=== PATIENT | female | born 2000 | race Caucasian/White ===

== ENCOUNTER 2023-02-09 13:22 | Emergency (ER) | payer MEDICAID, SELFPAY ==
[2023-02-09 13:31] VITALS: BP 141/98; PULSE 117; RESP 18; TEMP 36.4; O2SAT 100; BMI 20.5
--- NOTE | 2023-02-09 13:33 | ED_ITS ---
HPI - General Adult General Chief complaint: Skin/Abscess/Foreign Body <FREDRICK Gerard Last Filed: 02/10/23 11:25> Stated complaint: throat infection <FREDRICK Gerard Last Filed: 02/10/23 11:25> Time Seen by Provider: 02/09/23 14:41 <FREDRICK Gerard Last Filed: 02/10/23 11:25> Source: patient <FREDRICK Horner Last Filed: 02/11/23 06:50> Mode of arrival: ambulatory <FREDRICK Horner Last Filed: 02/11/23 06:50> Limitations: no limitations <FREDRICK Horner Last Filed: 02/11/23 06:50> History of Present Illness HPI narrative: Patient is a 22 year old assigned female at with no reported medical history, daily tobacco smoker, presenting to the emergency department today with a sore throat. Patient states that she has had a sore throat over the last 2 days and was seen by the nurse at [facility] who recommended she come to the emergency department. Patient denies any dizziness, lightheadedness, abdominal pain, nausea, vomiting, fever, chills, blurry vision, double vision, loss of vision, chest pain, difficulty breathing, shortness of breath, back pain, night sweats, pain with urination, increased urinary frequency, increased urinary urgency, blood in her urine or stool, syncope or a near syncopal episode, recent trauma or falls, bowel incontinence, bladder incontinence, bowel retention, bladder retention, or any other complaints at this time. <FREDRICK Horner Last Filed: 02/11/23 06:50> Onset (ago): day(s) (2) <FREDRICK Horner Last Filed: 02/11/23 06:50> Severity: mild <FREDRICK Horner Last Filed: 02/11/23 06:50> Severity scale (1-10): 2 <FREDRICK Horner Last Filed: 02/11/23 06:50> Relieving factors: none <FREDRICK Horner Last Filed: 02/11/23 06:50> Exacerbating factors: none <FREDRICK Horner Last Filed: 02/11/23 06:50> Associated symptoms: denies other symptoms <FREDRICK Horner Last Filed: 02/11/23 06:50> Treatments prior to arrival: none <FREDRICK Horner Last Filed: 02/11/23 06:50> Related Data Home medications: Previous Rx's Medication Instructions Recorded penicillin V potassium 500 mg 500 mg PO BID 10 days #20 tabs 02/09/23 tablet prednisone 20 mg tablet 20 mg PO DAILY 7 days #7 tabs 02/09/23 <FREDRICK Gerard Last Filed: 02/10/23 11:25> Allergies/adverse reactions: Allergies Allergy/AdvReac Type Severity Reaction Status Date / Time No Known Allergies Allergy Verified 02/09/23 13:31 <FREDRICK Gerard Last Filed: 02/10/23 11:25> Review of Systems Constitutional: Constitutional: Reports no additional constitutional complaints, Denies chills, Denies fever(s) and Denies night sweats <FREDRICK Horner Last Filed: 02/11/23 06:50> Eyes: Eyes: Reports no additional eye complaints, Denies blurry vision, Denies change in vision, Denies diplopia, Denies eye discharge, Denies loss of vision and Denies eye pain <FREDRICK Horner Last Filed: 02/11/23 06:50> ENT: Denies dizziness and Reports sore throat <FREDRICK Horner Last Filed: 02/11/23 06:50> Cardiovascular: Cardiovascular: Reports no additional cardiovascular complaints, Denies chest pain, Denies lightheadedness, Denies Loss of Consciousness and Denies dyspnea <FREDRICK Horner Last Filed: 02/11/23 06:50> Respiratory: Respiratory: Reports no additional respiratory complaints and Denies dyspnea <FREDRICK Horner Last Filed: 02/11/23 06:50> Gastrointestinal: Gastrointestinal: Reports no additional gastrointestinal complaints, Denies abdominal pain, Denies melena, Denies hematochezia, Denies change in bowel habits and Denies change in stool character <FREDRICK Horner Last Filed: 02/11/23 06:50> Genitourinary: Genitourinary: Denies hematuria, Denies urinary frequency, Denies dysuria, Denies urinary incontinence, Denies urinary hesitancy and Denies urinary urgency <FREDRICK Horner - Last Filed: 02/11/23 06:50> Musculoskeletal: Musculoskeletal: Reports no additional musculoskeletal complaints, Denies numbness and Denies tingling <FREDRICK Horner - Last Filed: 02/11/23 06:50> Neurologic: Denies dizziness, Denies loss of vision, Denies numbness and Denies tingling <FREDRICK Horner - Last Filed: 02/11/23 06:50> Psychiatric: Psychiatric: Reports no additional psychiatric complaints <FREDRICK Horner - Last Filed: 02/11/23 06:50> Endocrine: Endocrine: Reports no additional endocrine complaints <FREDRICK Horner - Last Filed: 02/11/23 06:50> Hematologic/Lymphatic: Hematologic/Lymphatic: Reports no additional hematologic/lymphatic complaints <FREDRICK Horner - Last Filed: 02/11/23 06:50> Allergic/Immunologic: Allergic/Immunologic: Reports no additional allergic/immunologic complaints <FREDRICK Horner - Last Filed: 02/11/23 06:50> [facility] Past Medical History Attestation statement: The following information was validated with the patient. <FREDRICK Horner - Last Filed: 02/11/23 06:50> Source: old records reviewed and nursing notes reviewed <FREDRICK Horner - Last Filed: 02/11/23 06:50> Social History Social History: Social History Advance Directives: No <FREDRICK Gerard - Last Filed: 02/10/23 11:25> Physical Exam ED Vital Signs: Vital Signs - 24 hr 02/09/23 13:31 02/09/23 16:06 Temperature 97.5 F Pulse Rate 117 H 101 H Respiratory Rate 18 Blood Pressure 141/98 H Pulse Oximetry 100 Oxygen Delivery Method Room Air BMI result Body Mass Index 20.5 <FREDRICK Gerard - Last Filed: 02/10/23 11:25> Vital Signs - 24 hr 02/09/23 13:31 02/09/23 16:06 Temperature 97.5 F Pulse Rate 117 H 101 H Respiratory Rate 18 Blood Pressure 141/98 H Pulse Oximetry 100 Oxygen Delivery Method Room Air BMI result Body Mass Index 20.5 <FREDRICK Horner Last Filed: 02/11/23 06:50> Const General: cooperative, no acute distress, alert and awake <FREDRICK Horner - Last Filed: 02/11/23 06:50> Nutritional Appearance: well nourished <FREDRICK Horner - Last Filed: 02/11/23 06:50> Orientation/consciousness: patient oriented x3 <FREDRICK Horner - Last Filed: 02/11/23 06:50> Limitations: no limitations <FREDRICK Horner - Last Filed: 02/11/23 06:50> HENMT Head: Yes normal to inspection and Yes atraumatic <FREDRICK Horner - Last Filed: 02/11/23 06:50> Ears: hearing grossly normal bilaterally and external ears normal <FREDRICK Horner - Last Filed: 02/11/23 06:50> General nose exam: Normal external nose present, no nasal discharge noted and no epistaxis <FREDRICK Horner - Last Filed: 02/11/23 06:50> Face and sinus: Yes normal facial exam, No abrasion and No laceration <FREDRICK Horner - Last Filed: 02/11/23 06:50> Mouth: Normal oral and palatal mucosa present, no drooling and no muffled voice <FREDRICK Horner - Last Filed: 02/11/23 06:50> Throat: Yes abnormal tonsil (bilateral erythema and exudates) <FREDRIKC Horner - Last Filed: 02/11/23 06:50> Eyes General: appearance normal, both eyes and all related structures <FREDRICK Horner - Last Filed: 02/11/23 06:50> Periorbital: periorbital findings normal <FREDRICK Horner - Last Filed: 02/11/23 06:50> Eyelids: Yes eyelids normal <FREDRICK Horner - Last Filed: 02/11/23 06:50> Conjunctivae: conjunctivae normal <FREDRICK Horner - Last Filed: 02/11/23 06:50> Pupils: Equal, round and reactive pupils present <Lavern Adams PA - Last Filed: 02/11/23 06:50> EOM: EOMs intact bilaterally <Lavern Adams PA - Last Filed: 02/11/23 06:50> Neck Neck: Yes normal visual inspection, Yes full ROM and Yes no lymphadenopathy <Lavern Adams MD - Last Filed: 02/11/23 06:50> Chest Chest palpation & inspection: normal inspection of the chest <Lavern Adams MD - Last Filed: 02/11/23 06:50> Resp Effort & Inspection: normal respiratory effort and able to speak in complete sentences <Lavern Adams MD - Last Filed: 02/11/23 06:50> Auscultation: clear to auscultation bilaterally <Lavern Adams MD - Last Filed: 02/11/23 06:50> Cardio Rate: regular rate <Lavern Adams MD - Last Filed: 02/11/23 06:50> Rhythm: regular rhythm <Lavern Adams MD - Last Filed: 02/11/23 06:50> GI Inspection: Yes normal to inspection <Lavern Adams PA - Last Filed: 02/11/23 06 :50> Neuro General: patient oriented x3 and moves all extremities <Lavern Adams PA - Last Filed: 02/11/23 06:50> Cranial nerves: Yes Equal, round and reactive pupils present <Lavern Adams MD - Last Filed: 02/11/23 06:50> Cognition (Neuro): normal cognition <Lavern Adams PA - Last Filed: 02/11/23 06:50> Motor exam (neuro): 5/5 motor strength present throughout <Lavern Adams PA - Last Filed: 02/11/23 06:50> Sensory Exam: Normal double simultaneous stimulation for sensation <Lavern Adams PA - Last Filed: 02/11/23 06:50> Coordination: [id number] test normal <Lavern Adams PA - Last Filed: 02/11/23 06:50> Extrem General: Yes normal to inspection, Yes full ROM and Yes capillary refill normal <Lavern Haysteven PA - Last Filed: 02/11/23 06:50> Psych Appearance: grossly normal <FREDRICK Horner - Last Filed: 02/11/23 06:50> Mental Status: mental status grossly normal <FREDRICK Horner Last Filed: 02/11/23 06:50> Affect: normal affect <FREDRICK Horner Last Filed: 02/11/23 06:50> Attitude: cooperative <FREDRICK Horner - Last Filed: 02/11/23 06:50> Thought process: Normal thought process present <FREDRICK Horner - Last Filed: 02/11/23 06:50> Thought content: Normal thought content present <FREDRICK Horner Last Filed: 02/11/23 06:50> Insight: Good insight present (Psych) <FREDRICK Horner - Last Filed: 02/11/23 06:50> Course Course Course Narrative: This is an RME: Additional HPI, ROS, PE not included below will be deferred to primary provider. 22 year old female with recent throat infection presents with severe throat pain that started tuesday. Negative strep test perfo rmed at school. Patient is very anxious and reports throat is severely painful. Bilateral tonsils enlarged, L>R with exudates that are white/brown/black. Cervical adenopathy. Plan: throat swab <FREDRICK Gerard - Last Filed: 02/10/23 11:25> Medications Administered Discontinued Medications Generic Name Dose Route Start Last Admin Trade Name Freq PRN Reason Stop Dose Admin Dexamethasone Sodium Phosphate 10 mg 02/09/23 14:54 02/09/23 15:06 Dexamethasone Sod Phosphate 10 Mg/Ml Vial IVPUSH 02/09/23 14:55 10 mg ONCE ONE Administration <FREDRICK Gerard - Last Filed: 02/10/23 11:25> Medications Administered Discontinued Medications Generic Name Dose Route Start Last Admin Trade Name Freq PRN Reason Stop Dose Admin Dexamethasone Sodium Phosphate 10 mg 02/09/23 14:54 02/09/23 15:06 Dexamethasone Sod Phosphate 10 Mg/Ml Vial IVPUSH 02/09/23 14:55 10 mg ONCE ONE Administration <FREDRICK Horner Last Filed: 02/11/23 06:50> Medical Decision Making Medical Decision Making MDM Narrative: Patient is a 22 year old assigned female at with no reported medical history presenting to the emergency department today with a sore throat. Patient's physical exam showed bilateral tonsilar erythema and exudates but was otherwise unremarkable. Patient had a patent airway and no vocal hoarseness. Patient's COVID/Influenza/Strep tests were negative. I explained my physical exam findings as well as all test results to the patient. I answered all questions asked by the patient. Patient received PO Decadron which she stated helped her symptoms significantly. I stressed the importance of the patient taking her medication as prescribed. I stressed the importance of the patient following up with her primary care provider. I stressed the importance of the patient returning to the emergency department immediately if her symptoms were to worsen or if she were to develop any dizziness, shortness of breath, difficulty breathing, chest pain, blurry vision, loss of vision, nausea, vomiting, abdominal pain, fever, chills, back pain, or any other complaints. Patient verbalized agreement and understanding with this treatment plan and discharge. <FREDRICK Horner - Last Filed: 02/11/23 06:50> Differential Diagnosis Differential Diagnoses: The differential diagnosis associated with the presentation includes <FREDRICK Horner - Last Filed: 02/11/23 06:50> pharyngitis <FREDRICK Horner - Last Filed: 02/11/23 06:50> Lab Data [facility] Lab Attestation statement: I reviewed the patient's lab results. <FREDRICK Horner - Last Filed: 02/11/23 06:50> Labs: Lab Results 02/09/23 02/09/23 02/09/23 Range/Units 15:04 15:04 15:05 COVID-19 ([facility]) Negative (Negative) COVID-19 Clin Com See Note Influenza Type A ([facility]) Negative (Negative) Influenza Type B ([facility]) Negative (Negative) Influenza A & B Note See Note S. pyogenes GrpA [facility] Negative (Negative) <FREDRICK Gerard - Last Filed: 02/10/23 11:25> Lab Results 02/09/23 02/09/23 02/09/23 Range/Units 15:04 15:04 15:05 COVID-19 ([facility]) Negative (Negative) COVID-19 Clin Com See Note Influenza Type A ([facility]) Negative (Negative) Influenza Type B ([facility]) Negative (Negative) Influenza A & B Note See Note S. pyogenes GrpA [facility] Negative (Negative) <FREDRICK Horner - Last Filed: 02/11/23 06:50> Discharge Plan Discharge Clinical Impression: Pharyngitis <FREDRICK Gerard - Last Filed: 02/10/23 11:25> Patient Disposition: Home, Self-Care <FREDRICK Gerard - Last Filed: 02/10/23 11:25> Instructions: Pharyngitis (ED) <FREDRICK Gerard - Last Filed: 02/10/23 11:25> Additional Instructions: Follow up with your primary care provider. Return to the emergency department immediately if your symptoms worsen or if you develop any dizziness, shortness of breath, difficulty breathing, chest pain, blurry vision, loss of vision, nausea, vomiting, abdominal pain, fever, chills, back pain, or any other complaints. <FREDRICK Gerard - Last Filed: 02/10/23 11:25> Prescriptions: New prednisone 20 mg tablet 20 mg PO DAILY 7 Days Qty: 7 0RF penicillin V potassium 500 mg tablet 500 mg PO BID 10 Days Qty: 20 0RF <FREDRICK Gerard - Last Filed: 02/10/23 11:25> Referrals: Brittney Hardwick MD [Primary Care Provider] - <FREDRICK Gerard - Last Filed: 02/10/23 11:25> Stand Alone Forms: Work/School Release <FREDRICK Gerard - Last Filed: 02/10/23 11:25> Interventions: ED Discharge Assessment Last Done: 02/09/23 16:27 <FREDRICK Gerard Last Filed: 02/10/23 11:25> Discharge Date/Time: 02/09/23 16:28 <FREDRICK Gerard Last Filed: 02/10/23 11:25> Print Language: Ivorian <FREDRICK Gerard Last Filed: 02/10/23 11:25>
[2023-02-09] MEDS: dexAMETHasone sod phosphate 10 MG/ML VIAL IVPUSH (15:06)
--- NOTE | 2023-02-09 15:22 | PC.NURSE ---
pt medicated per DEC, pending viral swab results, pt appears to be calming down from panic attack, will reassess HR prior to DC, call davidson within reach
[2023-02-09 15:29] LABS: IDNOW Serial# 08D9AD1C; Strep A Nucleic Acid Negative (Negative)
[2023-02-09 15:35] LABS: COVID-19 Test Negative (Negative); IDNOW Serial# BCCEAD1C
[2023-02-09 15:49] LABS: IDNOW Serial# 9DB6401D; Influenza A Negative (Negative); Influenza B2 Negative (Negative)
[2023-02-09 16:06] VITALS: PULSE 101
--- NOTE | 2023-02-09 16:12 | PC.NURSE ---
pt HR now ranging 101-103 bpm- breathing even and unlabored
== END 2023-02-09 16:28 | disposition home or self-care (01) ==
PROVIDERS: Physician Assistant Medical; Emergency Provider Emergency Medicine; PCP Family Medicine
DX: J02.9 Acute pharyngitis, unspecified (principal); Z20.822 Contact with and (suspected) exposure to COVID-19; Z20.828 Contact with and (suspected) exposure to other viral communicable diseases; Z79.899 Other long term (current) drug therapy
CPT/HCPCS: 87502; 87635; 87651; 99283; J1100